=== PATIENT | male | born 1975 | race Caucasian/White ===

== ENCOUNTER 2016-10-22 11:49 | Emergency (ER) | payer OTHER ==
[~2016-10-22] VITALS: Ht 177.8 cm; Wt 110.0 kg
[~2016-10-22 11:49] MED LIST: CLON2 PO; MORP30CP13 PO; MORP60CA19 PO
[2016-10-22] MEDS ORDERED: SODIUM CHLORIDE 0.9% 1,000 ML IV ONE ×2 (12:45→15:15)
[2016-10-22] MEDS ORDERED: FLUMAZENIL 0.1 MG/ML 5 ML VIAL IVP ONE (12:45)
[2016-10-22] MEDS ORDERED: NALOXONE HCL 1 MG/ML 2 ML SYG IVP ONE (12:45)
[2016-10-22 14:11] LABS: APPEARANCE,URINE CLEAR (CLEAR); GLUCOSE, URINE (UA) NEGATIVE (NEGATIVE); KETONES,URINE TRACE mg/dL (NEGATIVE); LEUKOCYTE ESTERASE ,URINE MODERATE (NEGATIVE); OCCULT BLOOD,URINE TRACE (NEGATIVE); PROTEIN,URINE TRACE (NEGATIVE)
[2016-10-22 14:12] LABS: ADD UA MICROSCOPIC YES
[2016-10-22 14:14] LABS: BASOPHILS % (AUTO) 0.2 % (0.0-2.0); EOSINOPHILS % (AUTO) 0.7 % (1.0-6.0); HEMATOCRIT 35.4 % (41-53); HEMOGLOBIN 11.9 g/dL (13.5-17.5); LYMPHOCYTES # (AUTO) 1.2 K/uL (1.0-4.8); LYMPHOCYTES % (AUTO) 14.7 % (22.0-44.0); MEAN CORPUSCULAR HEMOGLOBIN 30.1 pg (26.0-34.0); MEAN CORPUSCULAR HGB CONC 33.7 G/dL (31.0-37.0); MEAN CORPUSCULAR VOLUME 89 fL (80-100); MONOCYTES # (AUTO) 0.8 K/uL (0.1-1.0); MONOCYTES % (AUTO) 9.4 % (2.0-9.0); PLATELET COUNT (AUTO) 178 K/uL (150-450); RED BLOOD CELL COUNT(AUTO) 3.95 MIL/uL (4.50-5.90); RED CELL DISTRIBUTION WIDTH 14.7 % (11.5-14.5); WHITE BLOOD COUNT (AUTO) 8.1 K/uL (4.5-11.0)
[2016-10-22 14:18] LABS: RBC,URINE 0-2 /HPF (0-2)
[2016-10-22 14:19] LABS: SQUAMOUS EPITHELIAL CELL,UR Few /LPF (None Seen)
[2016-10-22 14:29] LABS: ANION GAP 12 mmol/L (8-16); CALCIUM, TOTAL 8.6 mg/dL (8.8-10.5); CARBON DIOXIDE 25 mmol/L (22-29); CHLORIDE 105 mmol/L (98-107); CREATININE 0.87 mg/dL (0.60-1.30); GLOMERULAR FILTR. RATE CALC > 60 mL/min (>60); POTASSIUM 3.6 mmol/L (3.5-5.1); SODIUM SERUM 142 mmol/L (136-145); UREA NITROGEN, BLOOD 18 mg/dL (7-18)
[2016-10-22 14:32] LABS: ALANINE AMINOTRANSFERASE 55 U/L (12-78); ALBUMIN 3.7 g/dL (3.4-5.0); ASPARTATE AMINOTRANSFERASE 44 U/L (15-37); BILIRUBIN,TOTAL 1.4 mg/dL (0.1-1.0); TOTAL PROTEIN, SERUM 6.6 g/dL (6.4-8.2)
[2016-10-22 19:58] VITALS: BP 136/85
== END 2016-10-22 19:54 | disposition home or self-care (01) ==
LOC: EMS 11:52 → EDBD 11:52 → EMS 19:54
DX: R41.82 Altered mental status, unspecified (principal); F15.10 Other stimulant abuse, uncomplicated; F19.90 Other psychoactive substance use, unspecified, uncomplicated; F11.90 Opioid use, unspecified, uncomplicated
CPT/HCPCS: 36415; 51702; 80053; 80307; 81001; 82140; 85025; 93005; 96361; 96374; 96375; 99285; G0480; J2310; J3490; J7030

== ENCOUNTER 2017-10-28 07:45 | Emergency (ER) | payer OTHER ==
[~2017-10-28] VITALS: Ht 170.2 cm; Wt 95.5 kg
[2017-10-28] MEDS ORDERED: BUPIVACAINE HCL/PF 0.25% 10 ML VIAL INJ ONE (08:45)
[2017-10-28] MEDS ORDERED: LORazepam 2 MG TABLET PO ONE (08:45)
[2017-10-28] MEDS ORDERED: PROMETHAZINE HCL 25 MG TABLET PO ONE (08:45)
[2017-10-28] MEDS ORDERED: CloNIDine HCL 0.1 MG TABLET PO ONE (08:45)
[2017-10-28 10:18] VITALS: BP 133/69
== END 2017-10-28 10:28 | disposition home or self-care (01) ==
LOC: EMS 07:47
DX: L92.8 Other granulomatous disorders of the skin and subcutaneous tissue (principal); F11.23 Opioid dependence with withdrawal; F41.9 Anxiety disorder, unspecified; F17.210 Nicotine dependence, cigarettes, uncomplicated
CPT/HCPCS: 10022; 99284; 99406; J3490

== ENCOUNTER 2018-07-16 11:07 | Inpatient (IN) | payer MEDICAID, OTHER ==
[~2018-07-16] VITALS: Ht 170.2 cm; Wt 91.2 kg
[2018-07-16] MEDS ORDERED: ZOLPIDEM TARTRATE 10 MG TABLET PO PRN (14:45)
[2018-07-16] MEDS ORDERED: ACETAMINOPHEN 325 MG TABLET PO PRN (15:00)
[2018-07-16] MEDS ORDERED: IBUPROFEN 600 MG TABLET PO PRN (15:00)
[2018-07-16] MEDS: HALOPERIDOL 5 MG TABLET PO PRN (16:14)
[2018-07-16] MEDS: LORazepam 2 MG TABLET PO PRN (16:14)
[2018-07-16 16:38] LABS: BASOPHILS % (AUTO) 0.7 % (0.0-2.0); EOSINOPHILS % (AUTO) 7.8 % (1.0-6.0); HEMOGLOBIN 10.9 g/dL (13.5-17.5); LYMPHOCYTES # (AUTO) 1.4 K/uL (1.0-4.8); LYMPHOCYTES % (AUTO) 37.9 % (22.0-44.0); MEAN CORPUSCULAR HEMOGLOBIN 29.9 pg (26.0-34.0); MEAN CORPUSCULAR HGB CONC 33.9 G/dL (31.0-37.0); MEAN CORPUSCULAR VOLUME 88 fL (80-100); MONOCYTES # (AUTO) 0.4 K/uL (0.1-1.0); MONOCYTES % (AUTO) 9.9 % (2.0-9.0); NEUTROPHILS # (AUTO) 1.6 K/uL (1.8-7.7); NEUTROPHILS % (AUTO) 43.7 % (40.0-70.0); RED BLOOD CELL COUNT(AUTO) 3.64 MIL/uL (4.50-5.90); RED CELL DISTRIBUTION WIDTH 14.4 % (11.5-14.5)
[2018-07-16 16:47] LABS: ANION GAP 10 mmol/L (8-16); CALCIUM, TOTAL 9.1 mg/dL (8.8-10.5); CARBON DIOXIDE 24 mmol/L (22-29); CHLORIDE 106 mmol/L (98-107); CREATININE 0.69 mg/dL (0.60-1.30); GLOMERULAR FILTR. RATE CALC > 60 mL/min (>60); GLUCOSE,RANDOM 74 mg/dL (70-110); POTASSIUM 3.8 mmol/L (3.5-5.1); SODIUM SERUM 140 mmol/L (136-145); UREA NITROGEN, BLOOD 9 mg/dL (7-18)
[2018-07-16 16:53] LABS: ALANINE AMINOTRANSFERASE 37 U/L (12-78); ALBUMIN 3.3 g/dL (3.4-5.0); ALKALINE PHOSPHATASE 67 U/L (46-116); ASPARTATE AMINOTRANSFERASE 38 U/L (15-37); BILIRUBIN,TOTAL 0.6 mg/dL (0.1-1.0); TOTAL PROTEIN, SERUM 6.7 g/dL (6.4-8.2)
[2018-07-16 17:01] LABS: PLATELET COUNT (AUTO) 138 K/uL (150-450)
[2018-07-16 21:24] VITALS: BP 130/80
[2018-07-17] MEDS: NICOTINE 21 MG/24 HOUR PATCH TD SCH (09:00)
[2018-07-17] MEDS: HALOPERIDOL 5 MG TABLET PO PRN ×3 (09:22→22:13)
[2018-07-17] MEDS: LORazepam 2 MG TABLET PO PRN ×3 (09:22→22:13)
[2018-07-18] MEDS: LORazepam 2 MG TABLET PO PRN ×4 (02:25→17:02)
[2018-07-18] MEDS: NICOTINE 21 MG/24 HOUR PATCH TD SCH (08:09)
[2018-07-18] MEDS: HALOPERIDOL 5 MG TABLET PO PRN ×3 (08:10→17:02)
== END 2018-07-18 23:56 | disposition home or self-care (01) | DRG 750 ==
LOC: EMS 11:07 → 3EI 16:46
PROVIDERS: ADMIT Psychiatry & Neurology Psychiatry; ATTEND Psychiatry & Neurology Psychiatry
DX: F25.9 Schizoaffective disorder, unspecified (principal); R45.851 Suicidal ideations; F43.10 Post-traumatic stress disorder, unspecified; F31.9 Bipolar disorder, unspecified; G89.29 Other chronic pain; D64.9 Anemia, unspecified; Z53.20 Procedure and treatment not carried out because of patient's decision for unspecified reasons; F40.00 Agoraphobia, unspecified; R79.89 Other specified abnormal findings of blood chemistry
CPT/HCPCS: G0480